=== PATIENT | female | born 1970 | race Caucasian/White ===

== ENCOUNTER 2017-03-03 11:37 | Emergency (ER) | payer MEDICAID ==
[2017-03-03] MEDS ORDERED: OXYCODONE-ACETAMINOPHEN 5-325 MG TABLET PO ONE (12:25)
--- NOTE | 2017-03-03 12:33 | ER Document Report ---
ED Extremity Problem, Lower - General Chief Complaint: Knee Pain Stated Complaint: LEFT KNEE PAIN Time Seen by Provider: 03/03/17 12:18 Notes: 46 yo female c/o left knee pain x several weeks. pt had surgery on same knee several years ago and reports pain since surgery, but this pain is more intense. feels crunching in knee. hurts to walk. knee feels unstable. pain started after climbing stairs on sailboat. no specific trauma. pt was seen by PCM yesterday, xrays done at [facility]. pt hoping for an MRI here in the ED. TRAVEL OUTSIDE OF THE [place] IN LAST 30 DAYS: No - HPI Patient complains to provider of: Pain Location: Knee - left Occurred: Other - several weeks Recent injury: No Exacerbated by: Movement, Walking Relieved by: Nothing - Related Data Allergies/Adverse Reactions: NSAIDS (Non-Steroidal Anti-Inflamma [Nsaids] Allergy (Verified 03/03/17 11:42) codeine Adverse Reaction (Verified 03/03/17 11:42) Nausea morphine [Morphine] Adverse Reaction (Verified 03/03/17 11:42) Chest pain Past Medical History - General Information source: Patient - Social History Smoking Status: Current Every Day Smoker Chew tobacco use (# tins/day): No Frequency of alcohol use: None Drug Abuse: None Lives with: Family Family History: Reviewed & Not Pertinent - Past Medical History Cardiac Medical History: Reports: Hx Hypertension Neurological Medical History: Reports: Hx Migraine Renal/ Medical History: Denies: Hx Peritoneal Dialysis GI Medical History: Reports: Hx Gastroesophageal Reflux Disease, Hx Hepatitis - Hepatitis C on no medications Psychiatric Medical History: Denies: Hx Depression Infectious Medical History: Reports: Hx Hepatitis - Hepatitis C on no medications Surgical Hx: Negative Past Surgical History: Reports: Hx Section - x3, Hx Cholecystectomy - Laparoscopic, Hx Orthopedic Surgery - L knee, TKR - Immunizations Hx Diphtheria, Pertussis, Tetanus Vaccination: Yes Review of Systems - Review of Systems Constitutional: No symptoms reported EENT: No symptoms reported Cardiovascular: No symptoms reported Respiratory: No symptoms reported Gastrointestinal: No symptoms reported Genitourinary: No symptoms reported Female Genitourinary: No symptoms reported Musculoskeletal: See HPI Skin: No symptoms reported Hematologic/Lymphatic: No symptoms reported Neurological/Psychological: No symptoms reported Physical Exam - Vital signs Vitals: Temp Pulse Resp BP Pulse Ox 98.0 F 81 20 148/85 H 98 03/03/17 11:42 03/03/17 11:42 03/03/17 11:42 03/03/17 11:42 03/03/17 11:42 Interpretation: Normal - General General appearance: Appears well, Alert - HEENT Head: Normocephalic, Atraumatic Eyes: Normal Pupils: PERRL - Respiratory Respiratory status: No respiratory distress Chest status: Nontender Breath sounds: Normal Chest palpation: Normal - Cardiovascular Rhythm: Regular Heart sounds: Normal auscultation Murmur: No - Abdominal Inspection: Normal Distension: No distension Bowel sounds: Normal Tenderness: Nontender Organomegaly: No organomegaly - Back Back: Normal, Nontender - Extremities General upper extremity: Normal inspection, Nontender, Normal color, Normal ROM , Normal temperature Knee: Tender - left infrapatellar pain, medial compartment pain. +soft tissue swelling to lateral distal quadricep. no effusion. neg drawer Calf: Normal - Neurological Neuro grossly intact: Yes Cognition: Normal Orientation: AAOx4 Noemi Coma Scale Eye Opening: Spontaneous [place] Coma Scale Verbal: Oriented [place]emi Coma Scale Motor: Obeys Commands [place] Coma Scale Total: 15 Speech: Normal Motor strength normal: LUE, RUE, LLE, RLE Sensory: Normal - Psychological Associated symptoms: Normal affect, Normal mood - Skin Skin Temperature: Warm Skin Moisture: Dry Skin Color: Normal Course - Re-evaluation Re-evalutation: 03/03/17 12:36 xray report from [facility] reviewed. xray showing s/p unicompartment arathroplasty within the medial compartment of left knee. medial tibial plateau compaonent appears well seated. alignment is appropriate. there are spurs along the medial joint line as well a moderately severe osteoarthritis involving the lateral compartment and the patellofemoral compartment and a joint effusion is present. no emergent imaging indicated today. will immobilize knee, provide crutches to help with ambulation and pain control. pt stable for discharge and follow up with PCM or orthopedics for further evaluation and treatment. pt agreeble with plan - Vital Signs Vital signs: Temp Pulse Resp BP Pulse Ox 98.0 F 81 20 148/85 H 98 03/03/17 11:42 03/03/17 11:42 03/03/17 11:42 03/03/17 11:42 03/03/17 11:42 Discharge - Discharge Clinical Impression: Left knee pain Qualifiers: Chronicity: acute Qualified Code(s): M25.562 - Pain in left knee Condition: Stable Disposition: HOME, SELF-CARE Instructions: Use of Crutches (OM), Suspected Internal Knee Injury (OM), Oral Narcotic Medication (OM), Ice & Elevation (OM) Additional Instructions: wear sharon and splint for comfort and protection pain med as needed oral steroid as prescribed follow up with orthopedist for further evaluation and treatment Prescriptions: Diclofenac Sodium [Voltaren] 4 gm TP QID PRN #100 g PRN Reason: Oxycodone HCl/Acetaminophen [Percocet 5-325 mg Tablet] 1 - 2 tab PO ASDIR PRN # 25 tablet PRN Reason: Prednisone [Deltasone 20 mg Tablet] 2 tab PO DAILY #16 tablet
[2017-03-03 13:19] VITALS: BP 137/97
== END 2017-03-03 13:19 | disposition home or self-care (01) ==
LOC: ER 11:37
DX: M17.12 Unilateral primary osteoarthritis, left knee (principal); M25.562 Pain in left knee; M79.89 Other specified soft tissue disorders; F17.200 Nicotine dependence, unspecified, uncomplicated; I10 Essential (primary) hypertension; Z96.652 Presence of left artificial knee joint; Z88.8 Allergy status to other drugs, medicaments and biological substances
CPT/HCPCS: 99283; L1830

== ENCOUNTER 2017-10-01 03:21 | Emergency (ER) | payer MEDICAID ==
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
[2017-10-01] MEDS ORDERED: OXYCODONE-ACETAMINOPHEN 5-325 MG TABLET PO ONE (05:08)
[2017-10-01] MEDS ORDERED: ONDANSETRON 4 MG TAB.RAPDIS PO ONE (05:08)
[2017-10-01 06:08] VITALS: BP 127/76
== END 2017-10-01 06:07 | disposition home or self-care (01) ==
LOC: ER 03:21
DX: S00.03XA Contusion of scalp, initial encounter (principal); S09.90XA Unspecified injury of head, initial encounter; M54.2 Cervicalgia; R51 Headache; R07.9 Chest pain, unspecified; I10 Essential (primary) hypertension; B19.20 Unspecified viral hepatitis C without hepatic coma; Z87.891 Personal history of nicotine dependence; Y09 Assault by unspecified means
CPT/HCPCS: 99284; 70450; 72125; S0119

== ENCOUNTER 2018-02-22 10:55 | Emergency (ER) | payer MEDICAID ==
[2018-02-22] MEDS ORDERED: FENTANYL CITRATE INJ/PF 100 MCG/2 ML AMPUL IM ONE (11:55)
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
[2018-02-22] MEDS ORDERED: HYDROCODONE/ACETAMINOPHEN 5-325 MG (6 TAB/ER DISP) PO PRN (15:15)
[2018-02-22 15:22] VITALS: BP 144/93
== END 2018-02-22 15:25 | disposition home or self-care (01) ==
LOC: ER 10:55
DX: S02.612A Fracture of condylar process of left mandible, initial encounter for closed fracture (principal); Y04.2XXA Assault by strike against or bumped into by another person, initial encounter; F17.200 Nicotine dependence, unspecified, uncomplicated; I10 Essential (primary) hypertension; Z90.49 Acquired absence of other specified parts of digestive tract; Z88.6 Allergy status to analgesic agent; Z96.652 Presence of left artificial knee joint
CPT/HCPCS: 99284; 96372; 70486; J3010

== ENCOUNTER 2018-05-24 13:06 | Emergency (ER) | payer SELFPAY ==
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
--- NOTE | 2018-05-24 13:58 | RADIOLOGY REPORT (SQ) ---
EXAM DESCRIPTION: CHEST SINGLE VIEW COMPLETED DATE/TIME: 05/24/2018 1:44 pm REASON FOR STUDY: hypoxia COMPARISON: 07/09/2016 EXAM PARAMETERS: NUMBER OF VIEWS: One view. TECHNIQUE: Single frontal radiographic view of the chest acquired. RADIATION DOSE: NA LIMITATIONS: None. FINDINGS: LUNGS AND PLEURA: No opacities, masses or pneumothorax. No pleural effusion. MEDIASTINUM AND HILAR STRUCTURES: No masses. Contour normal. HEART AND VASCULAR STRUCTURES: Heart normal in size. Normal vasculature. BONES: No acute findings. HARDWARE: None in the chest. OTHER: No other significant finding. IMPRESSION: NO ACUTE RADIOGRAPHIC FINDING IN THE CHEST. TECHNICAL DOCUMENTATION: JOB ID: [id number] [employer]- All Rights Reserved Reading location - IP/workstation name: [email or web address]
[2018-05-24] MEDS ORDERED: IPRATROPIUM/ALBUTEROL 0.5-2.5 MG/3 ML AMPUL NEB ONE (14:00)
[2018-05-24 14:04] LABS: ABSOLUTE BASOPHILS # (AUTO) 0.1 10^3/uL (0.0-0.2); ABSOLUTE EOSINOPHILS # (AUTO) 0.1 10^3/uL (0.0-0.6); ABSOLUTE MONOCYTES (AUTO) 0.4 10^3/uL (0.1-1.4); BASOPHILS % (AUTO) 1.1 % (0-2); EOSINOPHILS % (AUTO) 2.1 % (0-6); HEMATOCRIT 32.4 % (36.0-47.0); LYMPHOCYTES % (AUTO) 18.3 % (13-45); MEAN CORPUSCULAR HEMOGLOBIN 29.3 pg (27.0-33.4); MEAN CORPUSCULAR VOLUME 86 fl (80-97); RED BLOOD COUNT 3.75 10^6/uL (3.72-5.28); RED CELL DISTRIBUTION WIDTH 18.4 % (11.5-14.0); SEGMENTED NEUTROPHILS % (AUTO) 71.5 % (42-78); TOTAL CELLS COUNTED % (AUTO) 100 %; WHITE BLOOD COUNT 5.7 10^3/uL (4.0-10.5)
[2018-05-24 14:28] LABS: ALANINE AMINOTRANSFERASE 66 U/L (9-52); ALBUMIN 3.3 g/dL (3.5-5.0); ALCOHOL 108 mg/dL (NONE DETECTED); ALKALINE PHOSPHATASE 131 U/L (38-126); ANION GAP 9 (5-19); ASPARTATE AMINO TRANSFERASE 150 U/L (14-36); BILIRUBIN,DIRECT 0.7 mg/dL (0.0-0.4); BILIRUBIN,TOTAL 1.5 mg/dL (0.2-1.3); BLOOD UREA NITROGEN 4 mg/dL (7-20); CALCIUM 8.6 mg/dL (8.4-10.2); CARBON DIOXIDE 24 mmol/L (22-30); CHLORIDE 108 mmol/L (98-107); GLUCOSE 137 mg/dL (75-110); POTASSIUM 3.6 mmol/L (3.6-5.0); SODIUM 141.1 mmol/L (137-145); TOTAL PROTEIN 7.6 g/dL (6.3-8.2)
[2018-05-24 14:39] LABS: PLATELET COUNT 96 10^3/uL (150-450)
[2018-05-24 14:43] LABS: URINE AMPHETAMINES SCREEN NEGATIVE; URINE BARBITURATES SCREEN NEGATIVE; URINE BENZODIAZEPINES SCREEN NEGATIVE; URINE COCAINE SCREEN UNCONFIRMED POSITIVE; URINE METHADONE SCREEN NEGATIVE; URINE PHENCYCLIDINE SCREEN NEGATIVE
[2018-05-24 14:48] LABS: URINE MARIJUANA (THC) SCREEN NEGATIVE
--- NOTE | 2018-05-24 18:31 | EKG REPORT ---
SEVERITY:- BORDERLINE ECG - SINUS RHYTHM BORDERLINE T ABNORMALITIES, ANT-LAT LEADS : Confirmed by: Dillon Sandoval MD 24-May-2018 18:30:56
[2018-05-24 21:27] VITALS: BP 148/98
== END 2018-05-24 21:00 | disposition home or self-care (01) ==
LOC: ER 13:06
DX: T50.901A Poisoning by unspecified drugs, medicaments and biological substances, accidental (unintentional), initial encounter (principal); Y92.818 Other transport vehicle as the place of occurrence of the external cause; R58 Hemorrhage, not elsewhere classified; F17.210 Nicotine dependence, cigarettes, uncomplicated; R06.2 Wheezing; R74.0 Nonspecific elevation of levels of transaminase and lactic acid dehydrogenase [LDH]; I10 Essential (primary) hypertension; I85.00 Esophageal varices without bleeding; Z88.8 Allergy status to other drugs, medicaments and biological substances
CPT/HCPCS: 93005; 94640; 99285; 36415; 80307 ×2; 85025; 80053; 84484; 71045; 93010; J7620

== ENCOUNTER 2018-07-20 19:13 | Emergency (ER) | payer MEDICAID ==
[2018-07-20] MEDS ORDERED: ASPIRIN 81 MG TABLET, CHEWABLE PO ONE (20:06)
--- NOTE | 2018-07-20 20:39 | RADIOLOGY REPORT (SQ) ---
EXAM DESCRIPTION: CHEST SINGLE VIEW COMPLETED DATE/TIME: 07/20/2018 8:30 pm REASON FOR STUDY: cp COMPARISON: 07/09/2016. EXAM PARAMETERS: NUMBER OF VIEWS: One view. TECHNIQUE: Single frontal radiographic view of the chest acquired. RADIATION DOSE: NA LIMITATIONS: None. FINDINGS: LUNGS AND PLEURA: No opacities, masses or pneumothorax. No pleural effusion. MEDIASTINUM AND HILAR STRUCTURES: No masses. Contour normal. HEART AND VASCULAR STRUCTURES: Heart normal in size. Normal vasculature. BONES: No acute findings. Old fracture of the right clavicle. HARDWARE: None in the chest. OTHER: No other significant finding. IMPRESSION: NO ACUTE RADIOGRAPHIC FINDING IN THE CHEST. TECHNICAL DOCUMENTATION: JOB ID: [id number] [employer]- All Rights Reserved Reading location - IP/workstation name: [email or web address]
[2018-07-20] MEDS ORDERED: LORAZEPAM INJ 2 MG/1 ML VIAL IV ONE (20:46)
[2018-07-20] MEDS ORDERED: IPRATROPIUM/ALBUTEROL 0.5-2.5 MG/3 ML AMPUL NEB ONE (20:47)
[2018-07-20] MEDS ORDERED: ONDANSETRON HCL INJ/PF 4 MG/2 ML SDV IV ONE (20:49)
--- NOTE | 2018-07-20 20:49 | ER Document Report ---
ED Medical Screen (RME) - General Chief Complaint: Chest Pain Stated Complaint: CHEST PAIN Time Seen by Provider: 07/20/18 20:41 Notes: Patient is a 48-year-old female with history of COPD and cirrhosis that presents to the emergency department for chief complaint of chest pain, shortness of breath, and alcohol withdrawal symptoms. Patient reports that her last drink was approximately 2 days ago, she typically drinks about 1/5 of alcohol daily, she has cirrhosis with esophageal varices, she states she has had on and off black stool over the past 2 weeks, she has had some nausea and vomiting over the past several days as well, denies blood in the vomit.. ROS: Other than noted above, the 12 point review of systems was reviewed with the patient and were negative, all pertinent findings are included in the HPI. PHYSICAL EXAMINATION: Vital signs reviewed. GENERAL: Chronically ill-appearing female, but in no acute distress HEAD: Atraumatic, normocephalic. EYES: Pupils equal round extraocular movements intact, conjunctiva are normal. ENT: Nares patent NECK: Normal range of motion CV: Heart regular rate and rhythm, 2+ systolic murmur LUNGS: No respiratory distress, diminished lung sounds Musculoskeletal: Normal range of motion NEUROLOGICAL: Normal speech PSYCH: Normal mood, normal affect. MDM: Patient seen and examined for rapid initial assessment. Vital signs reviewed. A comprehensive ED assessment and evaluation of the patient, analysis of test results and completion of the medical decision making process will be conducted by additional ED providers. *Note is created using voice recognition software and may contain spelling, syntax or grammatical errors. TRAVEL OUTSIDE OF THE [place] IN LAST 30 DAYS: No - Related Data Allergies/Adverse Reactions: NSAIDS (Non-Steroidal Anti-Inflamma [Nsaids] Allergy (Verified 02/22/18 11:00) codeine Adverse Reaction (Verified 02/22/18 11:00) Nausea morphine [Morphine] Adverse Reaction (Verified 02/22/18 11:00) Chest pain Past Medical History - Past Medical History Cardiac Medical History: Reports: Hx Hypertension Neurological Medical History: Reports: Hx Migraine Renal/ Medical History: Denies: Hx Peritoneal Dialysis GI Medical History: Reports: Hx Gastroesophageal Reflux Disease, Hx Hepatitis - Hepatitis C on no medications Psychiatric Medical History: Denies: Hx Depression Infectious Medical History: Reports: Hx Hepatitis - Hepatitis C on no medications Past Surgical History: Reports: Hx Section - x3, Hx Cholecystectomy - Laparoscopic, Hx Orthopedic Surgery - L knee, TKR - Immunizations Hx Diphtheria, Pertussis, Tetanus Vaccination: Yes Physical Exam - Vital signs Vitals: Temp Pulse Resp BP Pulse Ox 98.0 F 102 H 20 168/98 H 100 07/20/18 19:42 07/20/18 19:42 07/20/18 19:42 07/20/18 19:42 07/20/18 19:42 Course - Vital Signs Vital signs: Temp Pulse Resp BP Pulse Ox 98.0 F 102 H 20 168/98 H 100 07/20/18 19:42 07/20/18 19:42 07/20/18 19:42 07/20/18 19:42 07/20/18 19:42 Doctor's Discharge - Discharge Referrals: MARIANGEL NEWTON MD [Primary Care Provider] - Follow up as needed
--- NOTE | 2018-07-20 21:06 | EKG REPORT ---
SEVERITY:- BORDERLINE ECG - SINUS TACHYCARDIA BORDERLINE PROLONGED QT INTERVAL : Confirmed by: Cande Evangelista MD 20-Jul-2018 21:04:56
[2018-07-20 22:36] LABS: HEMATOCRIT 32.8 % (36.0-47.0); HEMOGLOBIN 10.9 g/dL (12.0-15.5); MEAN CORPUSCULAR HEMOGLOBIN 30.5 pg (27.0-33.4); MEAN CORPUSCULAR HGB CONC 33.3 g/dL (32.0-36.0); MEAN CORPUSCULAR VOLUME 92 fl (80-97); PLATELET COUNT 118 10^3/uL (150-450); RED BLOOD COUNT 3.58 10^6/uL (3.72-5.28); RED CELL DISTRIBUTION WIDTH 18.2 % (11.5-14.0); WHITE BLOOD COUNT 4.7 10^3/uL (4.0-10.5)
[2018-07-20 22:45] LABS: ALANINE AMINOTRANSFERASE 63 U/L (9-52); ALBUMIN 3.5 g/dL (3.5-5.0); ALKALINE PHOSPHATASE 139 U/L (38-126); ANION GAP 9 (5-19); ASPARTATE AMINO TRANSFERASE 158 U/L (14-36); BILIRUBIN,DIRECT 0.8 mg/dL (0.0-0.4); BILIRUBIN,TOTAL 2.2 mg/dL (0.2-1.3); BLOOD UREA NITROGEN 11 mg/dL (7-20); CALCIUM 8.9 mg/dL (8.4-10.2); CARBON DIOXIDE 25 mmol/L (22-30); CHLORIDE 105 mmol/L (98-107); GLUCOSE 100 mg/dL (75-110); POTASSIUM 3.5 mmol/L (3.6-5.0); SODIUM 139.4 mmol/L (137-145); TOTAL PROTEIN 8.4 g/dL (6.3-8.2)
[2018-07-20 22:54] LABS: ABSOLUTE LYMPHOCYTES# (MANUAL) 1.3 10^3/uL (0.5-4.7); ABSOLUTE MONOCYTES # (MANUAL) 0.5 10^3/uL (0.1-1.4); ABSOLUTE NEUTROPHILS# (MANUAL) 2.8 10^3/uL (1.7-8.2); BASOPHILS % (MANUAL) 2 % (0-2); EOSINOPHILS % (MANUAL) 2 % (0-6); LYMPHOCYTES % (MANUAL) 27 % (13-45); MONOCYTES % (MANUAL) 10 % (3-13); SEGMENTED NEUTROPHILS % (MAN) 59 % (42-78); TOTAL CELLS COUNTED 100; TOXIC GRANULATION SLIGHT
[2018-07-20 22:55] LABS: ANISOCYTOSIS 2+; PLATELET COMMENT DECREASED; POIKILOCYTOSIS SLIGHT
[2018-07-21] MEDS ORDERED: LORAZEPAM INJ 2 MG/1 ML VIAL IV ONE (01:47)
--- NOTE | 2018-07-21 01:50 | ER Document Report ---
ED General - General Chief Complaint: Chest Pain Stated Complaint: CHEST PAIN Time Seen by Provider: 07/20/18 20:41 Notes: 48-year-old female with history of EtOH abuse, cirrhosis, esophageal varices, COPD presents to the emergency department for chest pain and numbness in her left arm and hand. She said this started yesterday evening and was sharp and stabbing in nature. She said it was made worse with deep inspiration and the pain subsided after a few minutes. She also had associated numbness of her left arm that has persisted and still is present. She also says she has shortness of breath, she vomits every time she eats or drinks, cold sweats, body aches, cramping abdominal pain, and she says "I am in alcohol withdrawal". She drinks 1/5 of vodka daily and her last drink was 2 days ago. She denies fevers, chest pain currently, dizziness, lightheadedness. TRAVEL OUTSIDE OF THE [place] IN LAST 30 DAYS: No - HPI Patient complains to provider of: chest pain, shortness of breath, numbness/ tingling left side - Related Data Allergies/Adverse Reactions: NSAIDS (Non-Steroidal Anti-Inflamma [Nsaids] Allergy (Verified 02/22/18 11:00) codeine Adverse Reaction (Verified 02/22/18 11:00) Nausea morphine [Morphine] Adverse Reaction (Verified 02/22/18 11:00) Chest pain Past Medical History - General Information source: Patient - Social History Smoking Status: Current Every Day Smoker Chew tobacco use (# tins/day): No Frequency of alcohol use: Heavy Drug Abuse: Cocaine Family History: Reviewed & Not Pertinent Patient has suicidal ideation: No Patient has homicidal ideation: No - Past Medical History Cardiac Medical History: Reports: Hx Hypertension Neurological Medical History: Reports: Hx Migraine Renal/ Medical History: Denies: Hx Peritoneal Dialysis GI Medical History: Reports: Hx Gastroesophageal Reflux Disease, Hx Hepatitis - Hepatitis C on no medications Psychiatric Medical History: Denies: Hx Depression Infectious Medical History: Reports: Hx Hepatitis - Hepatitis C on no medications Past Surgical History: Reports: Hx Section - x3, Hx Cholecystectomy - Laparoscopic, Hx Orthopedic Surgery - L knee, TKR - Immunizations Hx Diphtheria, Pertussis, Tetanus Vaccination: Yes Review of Systems - Review of Systems Constitutional: See HPI EENT: See HPI Cardiovascular: See HPI Respiratory: See HPI Gastrointestinal: See HPI Genitourinary: See HPI Female Genitourinary: No symptoms reported Musculoskeletal: See HPI Skin: No symptoms reported Hematologic/Lymphatic: No symptoms reported Neurological/Psychological: No symptoms reported Physical Exam - Vital signs Vitals: Temp Pulse Resp BP Pulse Ox 98.0 F 102 H 20 168/98 H 100 07/20/18 19:42 07/20/18 19:42 07/20/18 19:42 07/20/18 19:42 07/20/18 19:42 - Notes Notes: Reviewed vital signs and nursing note as charted by RN. CONSTITUTIONAL: Well-appearing, well-nourished, acting appropriately for age HEAD: Normocephalic, atraumatic, no swelling EYES: PERRL, Conjunctivae clear, no drainage, EOMI, no scleral icterus ENT: External ears without lesions, External auditory canal is patent, TMs without erythema, landmarks clear and well visualized, no rhinorrhea, Pharynx without erythema or lesions, no tonsillar hypertrophy, airway patent, mucous membranes pink and moist NECK: Supple, no cervical lymphadenopathy, no masses CARD: Regular rate and rhythm, no murmurs, no rubs, no gallops, capillary refill < 2 seconds, symmetric pulses RESP: The lungs are clear to auscultation bilaterally, no wheezing, no rales, no rhonchi. Respiratory rate and effort are normal, normal chest excursion. No respiratory distress, no retractions, no stridor, no nasal flaring, no accessory muscle use. ABD/GI: Normal bowel sounds, non-distended, soft, non-tender, no rebound, no guarding, hepatomegaly EXT: Normal ROM in all joints, non-tender to palpation, no effusions, no edema SKIN: Normal color for age and race, warm, dry, good turgor, no acute lesions noted NEURO: No facial asymmetry, moves all extremities equally, motor and sensory function intact, no asterixis Course - Re-evaluation Re-evalutation: 07/21/18 01:57 48-year-old female sleeping in the bed when I walked in the room in no acute distress presents for chest pain numbness in left arm and hand. She endorses that she is an alcoholic and her last drink was 2 days ago. She drinks 1/5 a day and says she is in withdrawal. She was given lorazepam 1 mg IV in triage at approximately 8:45 PM and I ordered Lorazepam 1 mg IV once more to be given. She did not have any evidence of asterixis but was tachycardic in the low 100s. Cardiac workup was initiated, initial troponin negative. 07/21/18 03:47 Second troponin negative. Patient was sleeping comfortably in the room when I went to reassess. No evidence of distress, patient was in normal sinus rhythm not tachycardic, no diaphoresis, no evidence of acute alcohol intoxication at this time. Patient with a negative cardiac workup at this time stable for discharge. I gave her instructions for close follow-up in case she has acute symptoms of alcohol withdrawal. 07/21/18 04:11 - Vital Signs Vital signs: Temp Pulse Resp BP Pulse Ox 98.4 F 102 H 16 168/98 H 99 07/21/18 01:07 07/21/18 01:07 07/21/18 01:07 07/20/18 19:42 07/21/18 01:07 - Laboratory Result Diagrams: 07/20/18 22:00 07/20/18 22:00 Laboratory results interpreted by me: 07/20/18 07/20/18 22:00 22:00 RBC 3.58 L Hgb 10.9 L Hct 32.8 L RDW 18.2 H Plt Count 118 L Potassium 3.5 L Total Bilirubin 2.2 H Direct Bilirubin 0.8 H AST 158 H ALT 63 H Alkaline Phosphatase 139 H Total Protein 8.4 H Discharge - Discharge Clinical Impression: Chest wall pain Hepatitis C Qualifiers: Viral hepatitis chronicity: chronic Hepatic coma status: without hepatic coma Qualified Code(s): B18.2 - Chronic viral hepatitis C Condition: Good Disposition: HOME, SELF-CARE Instructions: Chest Wall Pain ([facility]) Additional Instructions: You were seen in the emergency department this evening for chest wall pain and numbness in her left arm. Your cardiac workup was negative which is very reassuring. Because you have not had a drink in 2 days it is very important that you watch closely for signs of acute alcohol withdrawal. You initially had a heart rate that was slightly elevated and we gave you medication for that. At discharge you are very comfortable you have no evidence of acute alcohol withdrawal. Again if you have symptoms like cold sweats, racing heart rate, seizures, or you pass out call 911 or return to the emergency department. If you have severe chest pain, lightheadedness with it, nausea, vomiting please return to the emergency department. Forms: Smoking Cessation Education Referrals: MARIANGEL NEWTON MD [Primary Care Provider] - Follow up as needed [facility] [Provider Group] - Follow up as needed
[2018-07-21 06:52] VITALS: BP 124/76
== END 2018-07-21 06:50 | disposition home or self-care (01) ==
LOC: ER 19:13
DX: R07.89 Other chest pain (principal); B18.2 Chronic viral hepatitis C; F10.10 Alcohol abuse, uncomplicated; J44.9 Chronic obstructive pulmonary disease, unspecified; R20.0 Anesthesia of skin; R06.02 Shortness of breath; F17.200 Nicotine dependence, unspecified, uncomplicated; I10 Essential (primary) hypertension
CPT/HCPCS: 93005; 96376; 94640; 99285; 96374; 96375; 36415; 85025; 80053; 84484; 71045; 93010; J2060 ×2; J2405; J7620

== ENCOUNTER 2018-08-22 04:47 | Emergency (ER) | payer SELFPAY ==
[2018-08-22] MEDS ORDERED: ACETAMINOPHEN 325 MG TABLET PO ONE (05:08)
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
[2018-08-22] MEDS ORDERED: LIDOCAINE 5% (700 MG) TRANSDERMAL ADH..PATCH TP ONE (06:44)
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
[2018-08-22 07:22] VITALS: BP 111/61
== END 2018-08-22 07:23 | disposition home or self-care (01) ==
LOC: EEVIPCON 04:47 → ER 04:47
DX: R07.89 Other chest pain (principal); R07.81 Pleurodynia; R51 Headache; M54.2 Cervicalgia; M54.5 Low back pain; Y09 Assault by unspecified means; Y93.01 Activity, walking, marching and hiking; Y92.410 Unspecified street and highway as the place of occurrence of the external cause; R55 Syncope and collapse; R41.3 Other amnesia; F17.200 Nicotine dependence, unspecified, uncomplicated; I10 Essential (primary) hypertension; Z79.899 Other long term (current) drug therapy; Z88.8 Allergy status to other drugs, medicaments and biological substances
CPT/HCPCS: 70450; 72125; 72131; 99284

== ENCOUNTER 2018-11-12 10:33 | Emergency (ER) | payer SELFPAY ==
[2018-11-12] MEDS ORDERED: LIDOCAINE 5% (700 MG) TRANSDERMAL ADH..PATCH TP ONE (11:06)
[2018-11-12] MEDS ORDERED: CYCLOBENZAPRINE HCL 10 MG TABLET PO ONE (11:06)
--- NOTE | 2018-11-12 11:09 | ER Document Report ---
HPI - HPI Patient complains to provider of: Lower back pain Time Seen by Provider: 11/12/18 10:52 Pain Level: 4 Context: Patient is a 48-year-old female presents to the emergency department for lower back pain. Patient openly admits to getting heavily intoxicated with alcohol last evening. States she is unsure if she fell, or injured herself. States she woke up this morning with pain in her lower back. Patient is denying any urinary retention, loss of bowel or bladder. Patient is stating that she has a numbness or tingling feeling in bilateral all 5 fingers distally. Patient is denying any pain in her neck, upper back. Patient states she has an extensive history of esophageal varices with liver disease, hypertension Medications: Clonidine Allergies: Morphine, NSAIDs - REPRODUCTIVE Reproductive: DENIES: : Past Medical History - General Information source: Patient - Social History Smoking Status: Former Smoker Chew tobacco use (# tins/day): No Frequency of alcohol use: Occasional Drug Abuse: Cocaine Family History: Reviewed & Not Pertinent Patient has suicidal ideation: No Patient has homicidal ideation: No - Past Medical History Cardiac Medical History: Reports: Hx Hypertension Neurological Medical History: Reports: Hx Migraine Renal/ Medical History: Denies: Hx Peritoneal Dialysis GI Medical History: Reports: Hx Gastroesophageal Reflux Disease, Hx Hepatitis - Hepatitis C on no medications Psychiatric Medical History: Denies: Hx Depression Infectious Medical History: Reports: Hx Hepatitis - Hepatitis C on no medications Past Surgical History: Reports: Hx Section - x3, Hx Cholecystectomy - Laparoscopic, Hx Orthopedic Surgery - L knee, TKR - Immunizations Hx Diphtheria, Pertussis, Tetanus Vaccination: Yes Vertical Provider Document - CONSTITUTIONAL Agree With Documented VS: Yes Notes: GENERAL: Alert, interacts well. No acute distress, talking on her cell phone. HEAD: Normocephalic, atraumatic. EYES: Pupils equal, round, and reactive to light. Extraocular movements intact. ENT: Oral mucosa moist, tongue midline. NECK: Full range of motion. Supple. Trachea midline. LUNGS: Clear to auscultation bilaterally, no wheezes, rales, or rhonchi. No respiratory distress. HEART: Regular rate and rhythm. No murmur ABDOMEN: Soft, non-tender. Non-distended. Bowel sounds present in all 4 quadrants. EXTREMITIES: Moves all 4 extremities spontaneously. No edema, normal radial and dorsalis pedis pulses bilaterally. No cyanosis. 5 out of 5 strength all 4 extremities BACK: no cervical, thoracic midline tenderness. No saddle anesthesia, normal distal neurovascular exam. Lumbar spinal tenderness midline also right paraspinal tenderness noted. No obvious signs of trauma noted NEUROLOGICAL: Alert and oriented x3. Normal speech. cranial nerves II through XII grossly intact PSYCH: Normal affect, normal mood. SKIN: Warm, dry, normal turgor. No rashes or lesions noted. Capillary refill less than 2 seconds distally all 10 fingers. - INFECTION CONTROL TRAVEL OUTSIDE OF THE [place] IN LAST 30 DAYS: No Course - Re-evaluation Re-evalutation: Patient's lumbar spine x-ray reveals no signs of fractures. Patient has been treated with Flexeril and a Lidoderm patch in the emergency room. Due to her extensive history of esophageal varices and liver dysfunction NSAIDs were unable to be given. Discussed close follow-up with primary care provider and return precautions. - Vital Signs Vital signs: Temp Pulse Resp BP Pulse Ox 97.8 F 104 H 16 123/83 96 11/12/18 10:43 11/12/18 10:43 11/12/18 10:43 11/12/18 10:43 11/12/18 10:43 Discharge - Discharge Clinical Impression: Low back pain Qualifiers: Chronicity: acute Back pain laterality: right Sciatica presence: without sciatica Qualified Code(s): M54.5 - Low back pain Condition: Stable Disposition: HOME, SELF-CARE Instructions: Low Back Pain ([facility]), Muscle Strain ([facility]), Warm Packs ([facility]) Additional Instructions: As we discussed you have been seen and treated in the emergency department for your low back pain. Your x-rays revealed no signs of abnormalities. Please take muscle relaxers as prescribed and to exercises as outlined in this paperwork. Please also buy [id number] Lidoderm patches for generalized lower back pain relief. Please return to the emergency room should you have any other concerning symptoms. Please make sure you follow-up with your primary care provider in the next 24-48 hours. Prescriptions: Cyclobenzaprine HCl [Flexeril 5 mg Tablet] 5 mg PO TID #10 tablet Forms: Return to Work Referrals: [facility] [Provider Group] - Follow up as needed
--- NOTE | 2018-11-12 11:41 | RADIOLOGY REPORT (SQ) ---
EXAM DESCRIPTION: L SPINE WHOLE COMPLETED DATE/TIME: 11/12/2018 11:23 am REASON FOR STUDY: pain ? injury COMPARISON: None. NUMBER OF VIEWS: Five views including obliques. TECHNIQUE: AP, lateral, oblique, and sacral radiographic images acquired of the lumbar spine. LIMITATIONS: None. FINDINGS: MINERALIZATION: Normal. SEGMENTATION: Normal. No transitional anatomy. ALIGNMENT: Normal. VERTEBRAE: Maintained height. No fracture or worrisome bone lesion. DISCS: Multilevel disc space narrowing with osteophytes. POSTERIOR ELEMENTS: Pedicles and facets are intact. No pars defect or posterior arch defects. Facet arthropathy is present. HARDWARE: None in the spine. PARASPINAL SOFT TISSUES: Normal. PELVIS: Intact as visualized. No fractures or worrisome bone lesions. SI joints intact. OTHER: No other significant finding. IMPRESSION: SPONDYLOSIS WITHOUT BONE LESION OR FRACTURE. TECHNICAL DOCUMENTATION: JOB ID: [id number] [employer]- All Rights Reserved Reading location - IP/workstation name: [email or web address]
[2018-11-12 11:53] VITALS: BP 105/73
== END 2018-11-12 11:53 | disposition home or self-care (01) ==
LOC: ER 10:33
DX: M54.5 Low back pain (principal); R20.2 Paresthesia of skin; I10 Essential (primary) hypertension; Z88.6 Allergy status to analgesic agent; Z90.49 Acquired absence of other specified parts of digestive tract; Z86.19 Personal history of other infectious and parasitic diseases
CPT/HCPCS: 72110; 99283

== ENCOUNTER 2019-04-30 22:46 | Emergency (ER) | payer SELFPAY ==
[2019-04-30] MEDS ORDERED: NORMAL SALINE 1000 ML 1,000 ML IV ONE (23:10)
[2019-04-30] MEDS ORDERED: OCTREOTIDE ACETATE INJ/PF 100 MCG/1 ML SDV IV ONE (23:12)
[2019-04-30] MEDS ORDERED: ONDANSETRON HCL INJ/PF 4 MG/2 ML SDV IV ONE (23:12)
[2019-04-30] MEDS ORDERED: FAMOTIDINE INJ/PF 20 MG/2 ML SDV IV ONE (23:12)
[2019-04-30] MEDS ORDERED: PANTOPRAZOLE SODIUM 40 MG VIAL IV ONE (23:13)
--- NOTE | 2019-04-30 23:21 | ER Document Report ---
ED General - General Chief Complaint: Fever Stated Complaint: FEVER VOMITING Time Seen by Provider: 04/30/19 22:55 Information source: Patient Notes: Patient complains of nausea vomiting diarrhea and fever. She is known alcoholic. Her last drink was last night. She has a history of alcoholic cirrhosis. She has been coughing up streaks of blood today. She also complains of abdominal distention. Positive lower back pain. Denies dysuria. Positive chest pain. No shortness of breath. In route from EMS she received IV fluid and 4 mg of Zofran. She has a history of esophageal varices. No rashes. No other complaints. No trauma. Positive smoker. TRAVEL OUTSIDE OF THE [place] IN LAST 30 DAYS: No - Related Data Allergies/Adverse Reactions: NSAIDS (Non-Steroidal Anti-Inflamma [Nsaids] Allergy (Verified 11/12/18 10:37) codeine Adverse Reaction (Verified 11/12/18 10:37) Nausea morphine [Morphine] Adverse Reaction (Verified 11/12/18 10:37) Chest pain Past Medical History - Social History Smoking Status: Current Every Day Smoker Chew tobacco use (# tins/day): No Frequency of alcohol use: Heavy Drug Abuse: None Family History: Reviewed & Not Pertinent Patient has suicidal ideation: No Patient has homicidal ideation: No - Past Medical History Cardiac Medical History: Reports: Hx Hypertension Pulmonary Medical History: Reports: Hx Bronchitis, Hx COPD Neurological Medical History: Reports: Hx Migraine Renal/ Medical History: Denies: Hx Peritoneal Dialysis GI Medical History: Reports: Hx Gastroesophageal Reflux Disease - esoph varices, cirrhosis, Hx Hepatitis - Hepatitis C on no medications Psychiatric Medical History: Denies: Hx Depression Infectious Medical History: Reports: Hx Hepatitis - Hepatitis C on no medicat ions Past Surgical History: Reports: Hx Section - x3, Hx Cholecystectomy - Laparoscopic, Hx Orthopedic Surgery - L knee, TKR - Immunizations Hx Diphtheria, Pertussis, Tetanus Vaccination: Yes Review of Systems - Review of Systems Constitutional: Fever. denies: Chills -: Yes All other systems reviewed and negative Physical Exam - Vital signs Vitals: Resp Pulse Ox 24 H 83 L 04/30/19 22:51 04/30/19 22:51 Interpretation: Tachycardic - General General appearance: Alert Notes: APPEARS UNCOMFORTABLE. - HEENT Head: Normocephalic, Atraumatic Eyes: Normal Pupils: PERRL Mucous membranes: Dry Pharynx: Normal Neck: Normal, Supple - Respiratory Respiratory status: No respiratory distress Chest status: Nontender Breath sounds: Normal Chest palpation: Normal - Cardiovascular Rhythm: Regular, Tachycardia Heart sounds: Normal auscultation Murmur: No - Abdominal Inspection: Obese Distension: Distended Tenderness: Tender - ALL 4 QUADRANTS. ENLARGED LIVER. Organomegaly: Hepatomegaly - Back Back: Normal, Nontender - Extremities General upper extremity: Normal inspection, Nontender, Normal color, Normal ROM, Normal temperature General lower extremity: Edema, Normal ROM, Normal temperature. No: Niecy's sign - Neurological Neuro grossly intact: Yes Cognition: Normal Orientation: AAOx4 [place] Coma Scale Eye Opening: Spontaneous [place] Coma Scale Verbal: Oriented Noemi Coma Scale Motor: Obeys Commands [place] Coma Scale Total: 15 Speech: Normal Motor strength normal: LUE, RUE, LLE, RLE Sensory: Normal - Psychological Associated symptoms: Normal affect, Normal mood - Skin Skin Temperature: Warm Skin Moisture: Dry Skin Color: Normal Course - Re-evaluation Re-evalutation: 04/30/19 23:22 EKG PER ME SINUS TACHY 106; NS ST CHANGES; ARTIFACT; PAC. 05/01/19 00:42 ANTIBIOTIC ORDERED FOR UTI. BLOOD TRANSFUSION ORDERED FOR ANEMIA. 05/01/19 01:32 DISCUSSED CASE WITH HER DOCTOR HERE, DR. BOWERS. NO GI TOY DESIGNER HERE TONIGHT. WILL TRANSFER. 05/01/19 01:50 CONTACTED TRANSFER CENTER AT [facility]. WILL TALK TO DR. FRANKLIN AT ICU THERE. 05/01/19 02:42 DISCUSSED CASE IN DETAIL WITH DR. FRANKLIN, WHO HAS ACCEPTED THE PATIENT. HE RECOMMENDS [facility]. 05/01/19 02:43 05/01/19 02:[address] COTO. - Vital Signs Vital signs: Temp Pulse Resp BP Pulse Ox 18 116/77 95 05/01/19 02:01 05/01/19 02:00 05/01/19 02:01 - Laboratory Result Diagrams: 04/30/19 23:23 04/30/19 23:23 Laboratory results interpreted by me: 04/30/19 04/30/19 04/30/19 23:23 23:23 23:23 RBC 3.27 L Hgb 8.1 L Hct 24.8 L MCV 76 L MCH 24.8 L RDW 18.5 H Plt Count 68 L PT 18.4 H Sodium 131.0 L Potassium 3.1 L BUN 4 L Glucose 119 H Calcium 7.8 L Magnesium 1.5 L AST 209 H Total Protein 6.1 L Albumin 2.7 L Lipase 332.8 H Urine Blood Urine Nitrite Urine Urobilinogen Ur Leukocyte Esterase Crossmatch 04/30/19 05/01/19 23:39 00:00 RBC Hgb Hct MCV MCH RDW Plt Count PT Sodium Potassium BUN Glucose Calcium Magnesium AST Total Protein Albumin Lipase Urine Blood SMALL H Urine Nitrite POSITIVE H Urine Urobilinogen 4.0 H Ur Leukocyte Esterase MODERATE H Crossmatch See Detail - Diagnostic Test Radiology reviewed: Image reviewed, Reports reviewed Critical Care Note - Critical Care Note Total time excluding time spent on procedures (mins): 40 Discharge - Discharge Clinical Impression: Hemoptysis Chest pain Qualifiers: Chest pain type: unspecified Qualified Code(s): R07.9 - Chest pain, unspecified Abdominal pain Qualifiers: Abdominal location: generalized Qualified Code(s): R10.84 - Generalized abdominal pain Esophageal varices Qualifiers: Esophageal varices type: unspecified type Esophageal varices bleeding: with bleeding Qualified Code(s): I85.01 - Esophageal varices with bleeding Alcoholic cirrhosis Qualifiers: Ascites presence: with ascites Qualified Code(s): K70.31 - Alcoholic cirrhosis of liver with ascites Anemia Qualifiers: Anemia type: unspecified type Qualified Code(s): D64.9 - Anemia, unspecified UTI (urinary tract infection) Qualifiers: Urinary tract infection type: acute cystitis Hematuria presence: with hematuria Qualified Code(s): N30.01 - Acute cystitis with hematuria Condition: Serious Disposition: [facility]
[2019-04-30 23:48] LABS: ABSOLUTE LYMPHOCYTES (AUTO) 0.8 10^3/uL (0.5-4.7); ABSOLUTE MONOCYTES (AUTO) 0.6 10^3/uL (0.1-1.4); ABSOLUTE NEUT (AUTO) 3.7 10^3/uL (1.7-8.2); BASOPHILS % (AUTO) 0.8 % (0-2); EOSINOPHILS % (AUTO) 0.3 % (0-6); HEMATOCRIT 24.8 % (36.0-47.0); HEMOGLOBIN 8.1 g/dL (12.0-15.5); LYMPHOCYTES % (AUTO) 15.7 % (13-45); MEAN CORPUSCULAR HEMOGLOBIN 24.8 pg (27.0-33.4); MEAN CORPUSCULAR HGB CONC 32.7 g/dL (32.0-36.0); MEAN CORPUSCULAR VOLUME 76 fl (80-97); RED BLOOD COUNT 3.27 10^6/uL (3.72-5.28); RED CELL DISTRIBUTION WIDTH 18.5 % (11.5-14.0); SEGMENTED NEUTROPHILS % (AUTO) 72.2 % (42-78); TOTAL CELLS COUNTED % (AUTO) 100 %; WHITE BLOOD COUNT 5.2 10^3/uL (4.0-10.5)
[2019-05-01 00:05] LABS: PLATELET COUNT 68 10^3/uL (150-450)
[2019-05-01 00:12] LABS: ALBUMIN 2.7 g/dL (3.5-5.0); ALCOHOL 31 mg/dL (NONE DETECTED); ALKALINE PHOSPHATASE 72 U/L (38-126); ANION GAP 10 (5-19); ASPARTATE AMINO TRANSFERASE 209 U/L (14-36); BILIRUBIN,DIRECT 0.3 mg/dL (0.0-0.4); BILIRUBIN,TOTAL 0.8 mg/dL (0.2-1.3); BLOOD UREA NITROGEN 4 mg/dL (7-20); CALCIUM 7.8 mg/dL (8.4-10.2); CARBON DIOXIDE 22 mmol/L (22-30); CHLORIDE 99 mmol/L (98-107); GLUCOSE 119 mg/dL (75-110); POTASSIUM 3.1 mmol/L (3.6-5.0); TOTAL PROTEIN 6.1 g/dL (6.3-8.2)
[2019-05-01 00:19] LABS: INTERNATIONAL RATION (INR) 1.51; PROTHROMBIN TIME 18.4 SEC (11.4-15.4)
--- NOTE | 2019-05-01 00:23 | RADIOLOGY REPORT (SQ) ---
EXAM DESCRIPTION: XR CHEST 1 VIEW COMPLETED DATE/TME: 04/30/2019 23:09 CLINICAL HISTORY: 48 years, Female, CHEST PAIN COMPARISON: 07/20/2018 chest NUMBER OF VIEWS: 1 TECHNIQUE: Portable chest LIMITATIONS: None. FINDINGS: The heart size is normal. Lungs are clear. No pneumothorax IMPRESSION: No acute cardiopulmonary process copyright 2010 [employer]- All Rights Reserved
[2019-05-01 00:24] LABS: APPEARANCE,URINE CLOUDY; BILIRUBIN,URINE NEGATIVE (NEGATIVE); COLOR,URINE AMBER; GLUCOSE, URINE NEGATIVE (NEGATIVE); KETONES,URINE NEGATIVE (NEGATIVE); LEUKOCYTE ESTERASE,URINE MODERATE (NEGATIVE); NITRITE,URINE POSITIVE (NEGATIVE); PROTEIN,URINE NEGATIVE (NEGATIVE); URINE SPECIFIC GRAVITY 1.017
--- NOTE | 2019-05-01 00:34 | RADIOLOGY REPORT (SQ) ---
EXAM DESCRIPTION: CT ABDOMEN PELVIS WITHOUT IV CONTRAST COMPLETED DATE/TME: 04/30/2019 23:10 CLINICAL HISTORY: 48 years, Female, ABD PAIN COMPARISON: 07/13/2016 CT TECHNIQUE: 296 Images stored on PACS. All CT scanners at this facility use dose modulation, iterative reconstruction, and/or weight based dosing when appropriate to reduce radiation dose to as low as reasonably achievable (ALARA). [facility]: Dose Right [facility]: CareDose [facility]: Dose Right [facility]: Teradose 4D [facility]: Nu-Pulse LIMITATIONS: None. FINDINGS: The visualized lung bases are unremarkable. Small hiatal hernia. Nodularity of the liver consistent with cirrhosis. Splenomegaly at 15 cm. The adrenal glands, pancreas, and kidneys are unremarkable. Status post cholecystectomy. Moderate atheromatous change. No gross evidence for bowel obstruction. Small volume of ascites. Small amount of air in urinary bladder. Correlate with urinalysis. The appendix is not well seen. No pericecal inflammation. IMPRESSION: Cirrhotic change to the liver. Splenomegaly. Small volume of ascites. TECHNICAL DOCUMENTATION: Quality ID # [id number]: Final reports with documentation of one or more dose reduction techniques (e.g., Automated exposure control, adjustment of the mA and/or kV according to patient size, use of iterative reconstruction technique) copyright 2010 [employer]- All Rights Reserved
[2019-05-01] MEDS ORDERED: CEFTRIAXONE INJ 1000 MG VIAL IV ONE (00:42)
[2019-05-01] MEDS ORDERED: NORMAL SALINE 250 ML IV PRN ×2 (00:45)
--- NOTE | 2019-05-01 06:36 | EKG REPORT ---
SEVERITY:- BORDERLINE ECG - SINUS TACHYCARDIA ATRIAL PREMATURE COMPLEX BORDERLINE T ABNORMALITIES, LATERAL LEADS : Confirmed by: Dillon Sandoval MD 01-May-2019 06:35:43
[2019-05-01 08:15] VITALS: BP 133/85
--- NOTE | 2019-05-01 09:51 | ER Document Report ---
Doctor's Note Notes: 05/01/19 09:49 I have evaluated this pt. this am and she has no c/o at this time. She feels all of her needs are being met and her physical exam is normal. She is NPO as she is awaiting endoscopy via transfer to [facility].
[2019-05-01] MEDS ORDERED: HYDROMORPHONE HCL INJ/PF 2 MG/ML AMPULE IV ONE (10:29)
== END 2019-05-01 10:43 | disposition short-term general hospital (02) ==
LOC: ER 22:46
DX: I85.01 Esophageal varices with bleeding (principal); K70.31 Alcoholic cirrhosis of liver with ascites; N30.01 Acute cystitis with hematuria; D64.9 Anemia, unspecified; R04.2 Hemoptysis; R07.9 Chest pain, unspecified; R10.84 Generalized abdominal pain; R11.2 Nausea with vomiting, unspecified; R00.0 Tachycardia, unspecified; R19.7 Diarrhea, unspecified; R50.9 Fever, unspecified; M54.5 Low back pain; F17.200 Nicotine dependence, unspecified, uncomplicated; I10 Essential (primary) hypertension; J44.9 Chronic obstructive pulmonary disease, unspecified; Z88.8 Allergy status to other drugs, medicaments and biological substances
CPT/HCPCS: 93005; 99291; 96361; 96374; 96375; 86900; 86901; 36415; 36430; 86850; 80307; 83690; 83735; 85025; 85610; 80053; 81001; 84484; 86920; 71045; 74176; 93010; P9016; J1170; J2354; S0164; J0696; J2405; J7030; J7050; S0028

== ENCOUNTER 2019-05-15 15:29 | Emergency (ER) | payer SELFPAY ==
[2019-05-15 15:48] VITALS: BP 149/96
--- NOTE | 2019-05-15 16:32 | ER Document Report ---
ED Medical Screen (RME) - General Chief Complaint: Abdominal Pain Stated Complaint: ABDOMINAL PAIN Time Seen by Provider: 05/15/19 16:15 Mode of Arrival: Ambulatory Notes: 48-year-old female presented to ED for complaint of abdominal pain. She was sent over here by her primary care because she has gross ascites at this time. She was just seen and discharged Wednesday for ascites and blood transfusions. She has a history of hepatitis C alcoholic cirrhosis esophageal varices. She is a chronic alcoholic drinks daily smokes half pack a day uses cocaine last couple days ago. She states she is having shortness of breath and pain from her severe ascites. I have greeted and performed a rapid initial assessment of this patient. A comprehensive ED assessment and evaluation of the patient, analysis of test results and completion of medical decision making process will be conducted by an additional ED providers. TRAVEL OUTSIDE OF THE [place] IN LAST 30 DAYS: No - Related Data Allergies/Adverse Reactions: NSAIDS (Non-Steroidal Anti-Inflamma [Nsaids] Allergy (Verified 11/12/18 10:37) codeine Adverse Reaction (Verified 11/12/18 10:37) Nausea morphine [Morphine] Adverse Reaction (Verified 11/12/18 10:37) Chest pain Past Medical History - Past Medical History Cardiac Medical History: Reports: Hx Hypertension Pulmonary Medical History: Reports: Hx Bronchitis, Hx COPD Neurological Medical History: Reports: Hx Migraine Renal/ Medical History: Denies: Hx Peritoneal Dialysis GI Medical History: Reports: Hx Gastroesophageal Reflux Disease - esoph varices, cirrhosis, Hx Hepatitis - Hepatitis C on no medications Psychiatric Medical History: Denies: Hx Depression Infectious Medical History: Reports: Hx Hepatitis - Hepatitis C on no medications Past Surgical History: Reports: Hx Section - x3, Hx Cholecystectomy - Laparoscopic, Hx Orthopedic Surgery - L knee, TKR - Immunizations Hx Diphtheria, Pertussis, Tetanus Vaccination: Yes Physical Exam - Vital signs Vitals: Temp Pulse Resp BP Pulse Ox 98.7 F 109 H 18 149/96 H 96 05/15/19 15:46 05/15/19 15:46 05/15/19 15:46 05/15/19 15:46 05/15/19 15:46 Course - Vital Signs Vital signs: Temp Pulse Resp BP Pulse Ox 98.7 F 109 H 18 149/96 H 96 05/15/19 15:46 05/15/19 15:46 05/15/19 15:46 05/15/19 15:46 05/15/19 15:46
[2019-05-15 18:11] LABS: ABSOLUTE BASOPHILS # (AUTO) 0.1 10^3/uL (0.0-0.2); ABSOLUTE LYMPHOCYTES (AUTO) 1.4 10^3/uL (0.5-4.7); ABSOLUTE MONOCYTES (AUTO) 0.6 10^3/uL (0.1-1.4); ABSOLUTE NEUT (AUTO) 3.4 10^3/uL (1.7-8.2); BASOPHILS % (AUTO) 1.1 % (0-2); EOSINOPHILS % (AUTO) 0.7 % (0-6); HEMOGLOBIN 10.3 g/dL (12.0-15.5); MEAN CORPUSCULAR HEMOGLOBIN 24.9 pg (27.0-33.4); MEAN CORPUSCULAR HGB CONC 32.2 g/dL (32.0-36.0); MEAN CORPUSCULAR VOLUME 77 fl (80-97); MONOCYTES % (AUTO) 11.3 % (3-13); PLATELET COUNT 141 10^3/uL (150-450); RED BLOOD COUNT 4.14 10^6/uL (3.72-5.28); RED CELL DISTRIBUTION WIDTH 20.8 % (11.5-14.0); SEGMENTED NEUTROPHILS % (AUTO) 61.9 % (42-78); TOTAL CELLS COUNTED % (AUTO) 100 %; WHITE BLOOD COUNT 5.5 10^3/uL (4.0-10.5)
[2019-05-15 18:17] LABS: APPEARANCE,URINE SLIGHTLY-CLOUDY; BILIRUBIN,URINE NEGATIVE (NEGATIVE); COLOR,URINE AMBER; GLUCOSE, URINE NEGATIVE (NEGATIVE); KETONES,URINE NEGATIVE (NEGATIVE); LEUKOCYTE ESTERASE,URINE NEGATIVE (NEGATIVE); NITRITE,URINE NEGATIVE (NEGATIVE); PROTEIN,URINE NEGATIVE (NEGATIVE); URINE SPECIFIC GRAVITY 1.023
[2019-05-15 18:32] LABS: URINE BARBITURATES SCREEN NEGATIVE; URINE BENZODIAZEPINES SCREEN NEGATIVE; URINE COCAINE SCREEN UNCONFIRMED POSITIVE; URINE MARIJUANA (THC) SCREEN NEGATIVE; URINE METHADONE SCREEN NEGATIVE; URINE PHENCYCLIDINE SCREEN NEGATIVE
[2019-05-15 18:36] LABS: ALBUMIN 3.7 g/dL (3.5-5.0); ALKALINE PHOSPHATASE 84 U/L (38-126); ANION GAP 11 (5-19); ASPARTATE AMINO TRANSFERASE 65 U/L (14-36); BILIRUBIN,DIRECT 0.5 mg/dL (0.0-0.4); BILIRUBIN,TOTAL 2.2 mg/dL (0.2-1.3); BLOOD UREA NITROGEN 9 mg/dL (7-20); CALCIUM 9.3 mg/dL (8.4-10.2); CARBON DIOXIDE 26 mmol/L (22-30); CHLORIDE 100 mmol/L (98-107); GLUCOSE 81 mg/dL (75-110); POTASSIUM 3.7 mmol/L (3.6-5.0); TOTAL PROTEIN 8.5 g/dL (6.3-8.2)
--- NOTE | 2019-05-15 18:37 | RADIOLOGY REPORT (SQ) ---
EXAM DESCRIPTION: U/S ABDOMEN LIMITED W/O DOP COMPLETED DATE/TIME: 05/15/2019 6:26 pm REASON FOR STUDY: Ascites COMPARISON: 07/13/2016 TECHNIQUE: Dynamic and static grayscale images acquired of the abdomen and recorded on PACS. Patriciao lulú selected color Doppler and spectral images recorded. LIMITATIONS: None. FINDINGS: Limited sonographic imaging in the abdomen shows no significant ascites. IMPRESSION: No significant ascites is seen. TECHNICAL DOCUMENTATION: JOB ID: [id number] [employer]- All Rights Reserved Reading location - IP/workstation name: [email or web address]
== END 2019-05-15 21:07 | disposition left against medical advice (07) ==
LOC: ER 15:29
DX: Z53.21 Procedure and treatment not carried out due to patient leaving prior to being seen by health care provider (principal); R10.9 Unspecified abdominal pain; F10.20 Alcohol dependence, uncomplicated; F14.10 Cocaine abuse, uncomplicated; R18.8 Other ascites; R06.02 Shortness of breath; I10 Essential (primary) hypertension; F17.210 Nicotine dependence, cigarettes, uncomplicated
CPT/HCPCS: 36415; 76705; 80053; 80307; 81001; 83690; 85025; 99281

== ENCOUNTER 2019-05-16 11:25 | Emergency (ER) | payer SELFPAY ==
--- NOTE | 2019-05-16 12:15 | ER Document Report ---
ED Medical Screen (RME) - General Chief Complaint: GI Bleeding Stated Complaint: POSSIBLE GI BLEED Time Seen by Provider: 05/16/19 12:06 Notes: Patient is a 48-year-old female presents emergency department with a chief complaint of abdominal bloating and pain. She states that she also has a hard time swallowing. She was banded at [facility] and released last week for a GI bleed. Patient denies any vomiting at this time, but states that she is coughing up some tinged blood. Her last bowel movement was 3 days ago. Her abdomen is getting bigger. Denies any dysuria. Patient was seen in triage yesterday in the emergency department, but left due to the wait. Exam: Mildly tender generalized abdomen. I have greeted and performed a rapid initial assessment of this patient. A comprehensive ED assessment and evaluation of the patient, analysis of test results and completion of medical decision making process will be conducted by an additional ED providers. TRAVEL OUTSIDE OF THE [place] IN LAST 30 DAYS: No - Related Data Allergies/Adverse Reactions: NSAIDS (Non-Steroidal Anti-Inflamma [Nsaids] Allergy (Verified 05/16/19 12:02) codeine Adverse Reaction (Verified 05/16/19 12:02) Nausea morphine [Morphine] Adverse Reaction (Verified 05/16/19 12:02) Chest pain Past Medical History - Past Medical History Cardiac Medical History: Reports: Hx Hypertension Pulmonary Medical History: Reports: Hx Bronchitis, Hx COPD Neurological Medical History: Reports: Hx Migraine Renal/ Medical History: Denies: Hx Peritoneal Dialysis GI Medical History: Reports: Hx Gastroesophageal Reflux Disease - esoph varices, cirrhosis, Hx Hepatitis - Hepatitis C on no medications Psychiatric Medical History: Denies: Hx Depression Infectious Medical History: Reports: Hx Hepatitis - Hepatitis C on no medications Past Surgical History: Reports: Hx Section - x3, Hx Cholecystectomy - Laparoscopic, Hx Orthopedic Surgery - L knee, TKR - Immunizations Hx Diphtheria, Pertussis, Tetanus Vaccination: Yes Physical Exam - Vital signs Vitals: Temp Pulse BP Pulse Ox 98.4 F 89 123/71 94 05/16/19 11:33 05/16/19 11:33 05/16/19 11:33 05/16/19 11:33 Course - Vital Signs Vital signs: Temp Pulse Resp BP Pulse Ox 98.4 F 89 123/71 94 05/16/19 11:33 05/16/19 11:33 05/16/19 11:33 05/16/19 11:33
[2019-05-16 12:50] LABS: ABSOLUTE EOSINOPHILS # (AUTO) 0.1 10^3/uL (0.0-0.6); ABSOLUTE LYMPHOCYTES (AUTO) 1.3 10^3/uL (0.5-4.7); ABSOLUTE MONOCYTES (AUTO) 0.4 10^3/uL (0.1-1.4); ABSOLUTE NEUT (AUTO) 3.3 10^3/uL (1.7-8.2); BASOPHILS % (AUTO) 0.5 % (0-2); HEMATOCRIT 34.6 % (36.0-47.0); HEMOGLOBIN 11.3 g/dL (12.0-15.5); LYMPHOCYTES % (AUTO) 25.2 % (13-45); MEAN CORPUSCULAR HEMOGLOBIN 25.2 pg (27.0-33.4); MEAN CORPUSCULAR HGB CONC 32.6 g/dL (32.0-36.0); MEAN CORPUSCULAR VOLUME 77 fl (80-97); MONOCYTES % (AUTO) 8.3 % (3-13); PLATELET COUNT 146 10^3/uL (150-450); RED BLOOD COUNT 4.46 10^6/uL (3.72-5.28); RED CELL DISTRIBUTION WIDTH 21.3 % (11.5-14.0); TOTAL CELLS COUNTED % (AUTO) 100 %; WHITE BLOOD COUNT 5.1 10^3/uL (4.0-10.5)
--- NOTE | 2019-05-16 12:53 | RADIOLOGY REPORT (SQ) ---
EXAM DESCRIPTION: ACUTE ABDOMEN SERIES COMPLETED DATE/TIME: 05/16/2019 12:38 pm REASON FOR STUDY: abd pain; bloating COMPARISON: None. NUMBER OF VIEWS: Three views. TECHNIQUE: Frontal chest, supine abdomen and upright/decubitus abdomen radiographic images acquired. LIMITATIONS: None. FINDINGS: CHEST: Lungs clear of infiltrates. FREE AIR: None. No abnormal gas collections. BOWEL GAS PATTERN: Nonobstructive pattern. No dilated loops or air fluid levels. CALCIFICATIONS: No suspicious calcifications. HARDWARE: None in the abdomen. SOFT TISSUES: No gross mass or suggestion of organomegaly. BONES: No acute fracture. No worrisome bone lesions. OTHER: No other significant finding. IMPRESSION: NO RADIOGRAPHIC EVIDENCE FOR ACUTE ABDOMINAL DISEASE. TECHNICAL DOCUMENTATION: JOB ID: [id number] [employer]- All Rights Reserved Reading location - IP/workstation name: [email or web address]
[2019-05-16 13:17] LABS: ALKALINE PHOSPHATASE 93 U/L (38-126); ANION GAP 10 (5-19); ASPARTATE AMINO TRANSFERASE 71 U/L (14-36); BILIRUBIN,DIRECT 0.4 mg/dL (0.0-0.4); BILIRUBIN,TOTAL 2.4 mg/dL (0.2-1.3); BLOOD UREA NITROGEN 9 mg/dL (7-20); CALCIUM 9.2 mg/dL (8.4-10.2); CARBON DIOXIDE 27 mmol/L (22-30); CHLORIDE 98 mmol/L (98-107); GLUCOSE 84 mg/dL (75-110); POTASSIUM 3.2 mmol/L (3.6-5.0); TOTAL PROTEIN 9.2 g/dL (6.3-8.2)
--- NOTE | 2019-05-16 13:34 | ER Document Report ---
ED GI/ - General Chief Complaint: Abdominal Pain Stated Complaint: POSSIBLE GI BLEED Time Seen by Provider: 05/16/19 12:06 Primary Care Provider: BHARAT PEREZ MD [ACTIVE STAFF] - Follow up as needed Notes: Patient is a 48-year-old female with a history of esophageal varices, liver cirrhosis, hep C who presents to the emergency department with a chief complaint of a coughing up blood. Patient reports she is having epigastric pain without vomiting or diarrhea. Patient reports she was released from providing at hospital last week after being admitted for an upper GI bleed. Patient reports she was diagnosed with esophageal varices and had banding performed. Patient states she did follow-up with [facility] yesterday was told to report here due to her complaints of abdominal pain. Patient reports chills and a subjective fever. Patient reports she has not checked her temperature at home. Patient admits to doing cocaine 3 days ago. Patient also reports her last alcoholic beverage was 2 days ago. Patient reports she does drink 6 pack or more per day. TRAVEL OUTSIDE OF THE [place] IN LAST 30 DAYS: No - Related Data Allergies/Adverse Reactions: NSAIDS (Non-Steroidal Anti-Inflamma [Nsaids] Allergy (Verified 05/16/19 12:02) codeine Adverse Reaction (Verified 05/16/19 12:02) Nausea morphine [Morphine] Adverse Reaction (Verified 05/16/19 12:02) Chest pain Past Medical History - General Information source: Patient - Social History Smoking Status: Current Every Day Smoker Frequency of alcohol use: alcohol use daily Drug Abuse: Cocaine Lives with: Family Family History: Reviewed & Not Pertinent Patient has suicidal ideation: No Patient has homicidal ideation: No - Past Medical History Cardiac Medical History: Reports: Hx Hypertension Pulmonary Medical History: Reports: Hx Bronchitis, Hx COPD EENT Medical History: Reports: None Neurological Medical History: Reports: Hx Migraine Endocrine Medical History: Reports: None Renal/ Medical History: Reports: None. Denies: Hx Peritoneal Dialysis Malignancy Medical History: Reports: None GI Medical History: Reports: Hx Gastroesophageal Reflux Disease - esoph varices, cirrhosis, Hx Hepatitis - Hepatitis C on no medications Musculoskeletal Medical History: Reports None Skin Medical History: Reports None Psychiatric Medical History: Reports: None Denies: Hx Depression Traumatic Medical History: Reports: None Infectious Medical History: Reports: Hx Hepatitis - Hepatitis C on no me dications Past Surgical History: Reports: Hx Section - x3, Hx Cholecystectomy - Laparoscopic, Hx Orthopedic Surgery - L knee, TKR - Immunizations Hx Diphtheria, Pertussis, Tetanus Vaccination: Yes Review of Systems - Review of Systems Constitutional: No symptoms reported EENT: No symptoms reported Cardiovascular: No symptoms reported Respiratory: No symptoms reported Gastrointestinal: See HPI Genitourinary: No symptoms reported Female Genitourinary: No symptoms reported Musculoskeletal: No symptoms reported Skin: No symptoms reported Hematologic/Lymphatic: No symptoms reported Neurological/Psychological: No symptoms reported Physical Exam - Vital signs Vitals: Temp Pulse BP Pulse Ox 98.4 F 89 123/71 94 05/16/19 11:33 05/16/19 11:33 05/16/19 11:33 05/16/19 11:33 Interpretation: Normal - Notes Notes: GENERAL: Well-appearing, well-nourished and in no acute distress. HEAD: Atraumatic, normocephalic. EYES: Pupils equal round and reactive to light, extraocular movements intact, sclera anicteric, conjunctiva are normal. ENT: Nares patent, oropharynx clear without exudates. Moist mucous membranes. NECK: Normal range of motion, supple without lymphadenopathy or JVD. LUNGS: Breath sounds clear to auscultation bilaterally and equal. No wheezes rales or rhonchi. HEART: Regular rate and rhythm without murmurs, rubs or gallops. ABDOMEN: Soft, minimally tender throughout, normoactive bowel sounds. No guarding, no rebound. No masses appreciated. BACK: No cervical, thoracic, lumbar midline tenderness. No saddle anesthesia, normal distal neurovascular exam. GENITOURINARY: Deferred. EXTREMITIES: Normal range of motion, no pitting or edema. No clubbing or cyanosis. NEUROLOGICAL: Cranial nerves II through XII grossly intact. Normal speech, normal gait. PSYCH: Normal mood, normal affect. SKIN: Warm, Dry, normal turgor, no rashes or lesions noted. Course - Re-evaluation Re-evalutation: 05/16/19 13:54 Patient's Hemoccult was negative. Patient has not been coughing up or vomiting blood since in the emergency department. Patient was seen here yesterday and left prior to getting lab results. There was actually an increase in her hemoglobin from 10.3-11.3 today. Patient is not tachycardic, hypotensive or febrile. Patient reports she does have a follow-up with [facility] for repeat EGD at the beginning of June but would like somebody locally. Patient reports having a history of gastritis and has been taking her generic Protonix as prescribed. 05/16/19 14:16 Contacted [facility] for a GI consult. 05/16/19 14:[address] GI MD Dr[address] Samantha Calabrese at [facility] in regards to the patient c/o coughing up blood and recent esophageal banding. He reports that coughing up blood or vomiting of blood is not normal or expected. 05/16/19 15:[address] Perez who states that if and EGD were needed he would be available to do so. Coags added to blood work. Patient has had no coughing or vomiting of blood since being in room 15. I did inform the patient to save the specimen if she is able to provide one. 05/16/19 16:34 I did speak with the hospitalist for possible admission. Patient initially agreed to stay but now reports she needs to get a hold of her uncle as that is her only ride home. I did inform the patient that if she left it would be AGAINST MEDICAL ADVICE. Patient verbalizes understanding and states that she will make a few phone calls and let me know. I did speak with Dr. Vasquez who states to consult Dr. Singh. I will call him when the patient agrees to stay. 05/16/19 16:56 Patient reports that she is choosing not to stay and be admitted. I did discuss strict return precautions with the patient and risk of leaving to include bleeding, worsening of symptoms, and . Patient verbalizes understanding. Patient is completely alert and oriented x3. Patient will sign out AMA. Due to the patient's cough I did discuss the patient's case with who does recommend putting the patient on Augmentin for possible PNA. Patient reports that she was discharged from [facility] with a prescription for ciprofloxacin. Patient reports she was able to get this filled due to [facility]. Patient's urinalysis from yesterday did not show a urinary tract infection. I did make the patient aware of this. Patient's vital signs are stable without tachycardia, hypotension or fever. - Vital Signs Vital signs: Temp Pulse Resp BP Pulse Ox 98.6 F 87 16 121/83 100 05/16/19 15:42 05/16/19 15:42 05/16/19 15:42 05/16/19 15:42 05/16/19 15:42 - Laboratory Result Diagrams: 05/16/19 12:28 05/16/19 12:28 Laboratory results interpreted by me: 05/16/19 05/16/19 05/16/19 12:28 12:28 15:32 Hgb 11.3 L Hct 34.6 L MCV 77 L MCH 25.2 L RDW 21.3 H Plt Count 146 L PT 18.7 H Sodium 134.9 L Potassium 3.2 L Total Bilirubin 2.4 H AST 71 H Total Protein 9.2 H 05/16/19 13:38 Laboratory 05/16/19 05/16/19 12:28 12:28 WBC 5.1 RBC 4.46 Hgb 11.3 L Hct 34.6 L MCV 77 L MCH 25.2 L MCHC 32.6 RDW 21.3 H Plt Count 146 L Lymph % (Auto) 25.2 [place] % (Auto) 8.3 Eos % (Auto) 2.0 Baso % (Auto) 0.5 Absolute Neuts (auto) 3.3 Absolute Lymphs (auto) 1.3 Absolute Monos (auto) 0.4 Absolute Eos (auto) 0.1 Absolute Basos (auto) 0.0 Seg Neutrophils % 64.0 Sodium 134.9 L Potassium 3.2 L Chloride 98 Carbon Dioxide 27 Anion Gap 10 BUN 9 Creatinine 0.62 Est GFR ( Amer) > 60 Est GFR (MDRD) Non-Af > 60 Glucose 84 Calcium 9.2 Total Bilirubin 2.4 H Direct Bilirubin 0.4 Neonat Total Bilirubin Not Reportable Neonat Direct Bilirubin Not Reportable Neonat Indirect Bili Not Reportable AST 71 H ALT 35 Alkaline Phosphatase 93 Total Protein 9.2 H Albumin 4.0 - Diagnostic Test Radiology reviewed: Reports reviewed Radiology results interpreted by me: 05/16/19 13:39 Acute Abdomen Series 05/16/19 12:13 IMPRESSION: NO RADIOGRAPHIC EVIDENCE FOR ACUTE ABDOMINAL DISEASE. Discharge - Discharge Clinical Impression: Alcoholic cirrhosis Qualifiers: Ascites presence: without ascites Qualified Code(s): K70.30 - Alcoholic cirrhosis of liver without ascites Esophageal varices Qualifiers: Esophageal varices type: unspecified type Esophageal varices bleeding: without bleeding Qualified Code(s): I85.00 - Esophageal varices without bleeding Abdominal pain Qualifiers: Abdominal location: epigastric Qualified Code(s): R10.13 - Epigastric pain Condition: Stable Disposition: AGAINST MEDICAL ADVICE Additional Instructions: Today you were seen in the emergency department for possible coughing up blood. We did compare your laboratory findings today from yesterday and your hemoglobin has actually improved from 10.3-11.3. You have not had any active vomiting or coughing up blood since being in the emergency department. Your blood work is reassuring. Your abdominal x-ray was unremarkable. We have given you a GI cocktail which helps numb the esophagus to help with your gastritis. Due to your history of recent banding for esophageal varices we did recommend admission to monitored you overnight. You have chose to leave and not stay in the hospital. Please continue take your Protonix as previously prescribed. Please keep your appointment with [facility] in June. I have referred you to Dr. Perez who is one of our local print line supervisor. You can call him if you want a local print line supervisor. You are choosing to leave AGAINST MEDICAL ADVICE at this time. Please refrain from drinking alcohol, limit cigarette smoking, limit cocaine use. Please return to the emergency department if you have vomiting or coughing up of blood, fever, shortness of breath, severe abdominal pain or any other concerning signs or symptoms. Prescriptions: Amox Tr/Potassium Clavulanate [Augmentin 875-125 Tablet] 1 tab PO BID 10 Days #7 tablet Forms: Smoking Cessation Education Referrals: BHARAT PEREZ MD [ACTIVE STAFF] - Follow up as needed
[2019-05-16] MEDS ORDERED: METOCLOPRAMIDE HCL ORAL SOLN 10 MG/10 ML UDCUP PO ONE (13:56)
[2019-05-16] MEDS ORDERED: LIDOCAINE 2% VISCOUS SOLN 20 ML UDCUP PO ONE (13:56)
[2019-05-16] MEDS ORDERED: MAG HYDROX/AL HYDROX/SIMETH SUSP 30 ML UDCUP PO ONE (13:56)
[2019-05-16 15:42] VITALS: BP 121/83
[2019-05-16 16:00] LABS: INTERNATIONAL RATION (INR) 1.55; PROTHROMBIN TIME 18.7 SEC (11.4-15.4)
[2019-05-16 16:01] LABS: PARTIAL THROMBOPLASTIN TIME 28.7 SEC (23.5-35.8)
== END 2019-05-16 17:21 | disposition left against medical advice (07) ==
LOC: ER 11:25
DX: K70.30 Alcoholic cirrhosis of liver without ascites (principal); I85.00 Esophageal varices without bleeding; R10.13 Epigastric pain; R10.817 Generalized abdominal tenderness; R68.83 Chills (without fever); F14.10 Cocaine abuse, uncomplicated; R04.2 Hemoptysis; I10 Essential (primary) hypertension; J44.9 Chronic obstructive pulmonary disease, unspecified; F17.200 Nicotine dependence, unspecified, uncomplicated; K21.9 Gastro-esophageal reflux disease without esophagitis; K29.70 Gastritis, unspecified, without bleeding; Z79.899 Other long term (current) drug therapy; Z98.890 Other specified postprocedural states; Z88.8 Allergy status to other drugs, medicaments and biological substances; Z53.20 Procedure and treatment not carried out because of patient's decision for unspecified reasons
CPT/HCPCS: 36415; 85025; 85610; 85730; 80053; 74022; J3490; 99284

== ENCOUNTER 2020-05-08 22:27 | Emergency (ER) | payer MEDICAID ==
[2020-05-08] MEDS ORDERED: OXYCODONE HCL IR 5 MG TABLET PO ONE (23:40)
--- NOTE | 2020-05-08 23:42 | ER Document Report ---
ED Medical Screen (RME) - General Stated Complaint: LEFT SIDE OF FACE PAIN AND SWELLING Time Seen by Provider: 05/08/20 23:34 Primary Care Provider: MARIANGEL NEWTON MD [Primary Care Provider] - Follow up as needed Mode of Arrival: Wheelchair Information source: Patient Notes: HPI; 49-year-old female presents to the emergency room complaining of right- sided facial swelling that started yesterday. Patient states 2 days ago she noticed a pimple in her left nare and then developed a bloody nose. States she woke up yesterday after doing with redness and swelling which is gotten progressively worse. Has not taken any medications for her symptoms. She denies any other trauma or injury. No history of MRSA. PE: Alert and oriented x3. Moderate distress noted. There is significant swelling to the upper lip with erythema and swelling to the left side of her face. It is warm and tender to palpation. There is erythema and swelling noted along the left side of her nose. There is no active discharge or draining noted. Lungs: Clear to auscultation without rales, rhonchi, wheezes. Heart: Tachycardic without murmurs, rubs, gallops. I have greeted and performed a rapid initial assessment of this patient. A comprehensive ED assessment and evaluation of the patient, analysis of test results and completion of the medical decision making process will be conducted by additional ED providers. I have specifically instructed the patient or family members with the patient to immediately return to any nursing staff should anything change in the patient's condition or with their chief complaint. TRAVEL OUTSIDE OF THE [place] IN LAST 30 DAYS: No - Related Data Allergies/Adverse Reactions: NSAIDS (Non-Steroidal Anti-Inflamma [Nsaids] Allergy (Verified 05/16/19 12:02) codeine Adverse Reaction (Verified 05/16/19 12:02) Nausea morphine [Morphine] Adverse Reaction (Verified 05/16/19 12:02) Chest pain Past Medical History - Past Medical History Cardiac Medical History: Reports: Hx Hypertension Pulmonary Medical History: Reports: Hx Bronchitis, Hx COPD Neurological Medical History: Reports: Hx Migraine Renal/ Medical History: Denies: Hx Peritoneal Dialysis GI Medical History: Reports: Hx Gastroesophageal Reflux Disease - esoph varices, cirrhosis, Hx Hepatitis - Hepatitis C on no medications Psychiatric Medical History: Denies: Hx Depression Infectious Medical History: Reports: Hx Hepatitis - Hepatitis C on no medications Past Surgical History: Reports: Hx Section - x3, Hx Cholecystectomy - Laparoscopic, Hx Orthopedic Surgery - L knee, TKR - Immunizations Hx Diphtheria, Pertussis, Tetanus Vaccination: Yes Physical Exam - Vital signs Vitals: Temp Pulse Resp BP Pulse Ox 98.6 F 118 H 20 138/79 H 96 05/08/20 22:53 05/08/20 22:53 05/08/20 22:53 05/08/20 22:53 05/08/20 22:53 Course - Vital Signs Vital signs: Temp Pulse Resp BP Pulse Ox 98.6 F 118 H 20 138/79 H 96 05/08/20 22:53 05/08/20 22:53 05/08/20 22:53 05/08/20 22:53 05/08/20 22:53 Doctor's Discharge - Discharge Referrals: MARIANGEL NEWTON MD [Primary Care Provider] - Follow up as needed
--- NOTE | 2020-05-09 00:18 | ER Document Report ---
ED General - General Chief Complaint: Facial Swelling Stated Complaint: LEFT SIDE OF FACE PAIN AND SWELLING Time Seen by Provider: 05/08/20 23:34 Primary Care Provider: MARIANGEL NEWTON MD [NO LOCAL MD] - Follow up as needed Mode of Arrival: Wheelchair TRAVEL OUTSIDE OF THE [place] IN LAST 30 DAYS: No - HPI Notes: 49-year-old female presents with facial swelling. Patient states that a day and a half ago, she thought that she had a pimple inside of her left nostril, picked at the area. Has developed progressive swelling to the left side of her face, mainly the upper lip. Then states that potentially she might have been bit by something as she noticed a similar area on her left eyebrow. Swelling has been progressive, is causing her some pain. She denies any new medications. She has not taken any medications. Med list does not have TOD inhibitor. - Related Data Allergies/Adverse Reactions: codeine Adverse Reaction (Verified 05/16/19 12:02) Nausea morphine [Morphine] Adverse Reaction (Verified 05/16/19 12:02) Chest pain NSAIDS (Non-Steroidal Anti-Inflamma [Nsaids] Adverse Reaction (Verified 05/09/20 00:29) Past Medical History - General Information source: Patient - Social History Smoking Status: Current Every Day Smoker Frequency of alcohol use: restarted recently Drug Abuse: None Family History: Reviewed & Not Pertinent - Past Medical History Cardiac Medical History: Reports: Hx Hypertension Pulmonary Medical History: Reports: Hx Bronchitis, Hx COPD Neurological Medical History: Reports: Hx Migraine Renal/ Medical History: Denies: Hx Peritoneal Dialysis GI Medical History: Reports: Hx Gastroesophageal Reflux Disease - esoph varices, cirrhosis, Hx Hepatitis - Hepatitis C on no medications Psychiatric Medical History: Denies: Hx Depression Infectious Medical History: Reports: Hx Hepatitis - Hepatitis C on no medications Past Surgical History: Reports: Hx Section - x3, Hx Cholecystectomy - Laparoscopic, Hx Orthopedic Surgery - L knee, TKR - Immunizations Hx Diphtheria, Pertussis, Tetanus Vaccination: Yes Review of Systems - Review of Systems Constitutional: denies: Fever EENT: Mouth swelling. denies: Difficulty swallowing Cardiovascular: denies: Chest pain Respiratory: denies: Short of breath Gastrointestinal: denies: Diarrhea, Vomiting Genitourinary: No symptoms reported Musculoskeletal: No symptoms reported Skin: Change in color Neurological/Psychological: No symptoms reported Physical Exam - Vital signs Vitals: Temp Pulse Resp BP Pulse Ox 98.6 F 118 H 20 138/79 H 96 05/08/20 22:53 05/08/20 22:53 05/08/20 22:53 05/08/20 22:53 05/08/20 22:53 - General General appearance: Alert - HEENT Head: Normocephalic, Atraumatic Extraocular movements intact: Yes Pupils: PERRL Nasal: No: Swelling Mouth/Lips: Other - There is marked swelling of the upper lip, somewhat asymmetric with the left side being larger than the right side. There is no edema of the tongue or palate. Pharynx: No: Erythema, Uvular edema Neck: Supple, Other - Phonation intact, no stridor Notes: There is erythema and swelling to the left cheek, this area is soft, there is no induration or area of fluctuance, there appears to be small mat near left upper lip possibly insect bite. There is a smaller localized area of swelling with mild erythema to the left distal eyebrow, again a small mat which could be insect bite. - Respiratory Respiratory status: No respiratory distress Breath sounds: Normal. No: Wheezing - Cardiovascular Rhythm: Regular, Tachycardia Heart sounds: Normal auscultation - Abdominal Tenderness: Nontender - Extremities General upper extremity: Normal inspection, Normal color General lower extremity: Normal inspection, Normal color - Neurological Neuro grossly intact: Yes Cognition: Normal Orientation: AAOx4 - Psychological Associated symptoms: Anxious - Skin Skin Temperature: Warm Course - Re-evaluation Re-evalutation: 49-year-old female with left facial swelling x1.5-day. There is marked swelling to the upper lip, there is some associated left-sided facial swelling as well. Phonation is intact, no stridor, no tongue swelling. There is no TOD inhibitor in her medication list. Given that there are 2 insect appearing bites, I am c oncerned that this actually represents an allergic reaction. Does not have overt appearance of cellulitis at this time. Would have a less concern for deep space infection given the rapidly progressive nature of her symptoms. We will start symptomatic control with Benadryl, Pepcid and Solu-Medrol. Consider imaging if no improvement after medications. She is afebrile, not hypotensive, mild tachycardic. 05/09/20 01:06 In to reassess, received meds about 20 minutes ago. There does seem to be a mild improvement to the swelling of the upper lip. Patient sleeping 05/09/20 01:56 No leukocytosis or left shift suggestive of infection. Mild hyponatremia, history of this, has received 1L LR. Electrolytes otherwise okay. Creatinine within normal limits. Mild elevation of LFTs, history of this as well. 05/09/20 02:28 Improvement in the lip swelling since last check 05/09/20 03:30 Patient awake, she is now able to close her lips. Will reorder Benadryl as we have had some success so far with treatment 05/09/20 05:02 Area of swelling to left eyebrow has pretty much resolved 05/09/20 05:52 Lip swelling continues to improve, left facial swelling has almost resolved. Patient sleeping, VSS 05/09/20 07:02 Woke patient up to discuss positive results, lip swelling has markedly improved, greater than 50% reduction. There is still some swelling persist. I discussed with her that she will need to be on a course of prednisone which has been prescribed. She is also to continue Benadryl. Patient states that she still feels she is too sleepy to go home at this time, this is understandable as she has had 100 mg of IV Benadryl total. Patient will be discharged when she is more awake. - Vital Signs Vital signs: Temp Pulse Resp BP Pulse Ox 99 F 118 H 17 140/81 H 97 05/09/20 05:00 05/08/20 22:53 05/09/20 06:00 05/09/20 06:00 05/09/20 06:00 - Laboratory Result Diagrams: 05/09/20 00:24 05/09/20 00:24 Laboratory results interpreted by me: 05/09/20 05/09/20 00:24 00:24 Hct 34.9 L RDW 17.9 H Plt Count 72 L Lymph % (Auto) 12.6 L [place] % (Auto) 13.1 H Sodium 131.4 L AST 108 H ALT 69 H Discharge - Discharge Clinical Impression: Left facial swelling Allergic reaction Qualifiers: Encounter type: initial encounter Qualified Code(s): T78.40XA - Allergy, unspec ified, initial encounter Disposition: HOME, SELF-CARE Additional Instructions: You were seen today for facial swelling. As discussed, you had signs that were concerning for an allergic reaction. You have been prescribed a course of steroids, please take this for 5 days. You may continue to use Benadryl as well, can use up to 4 times per day. Please have close follow-up with your primary care doctor. Return to the emergency department for any concerning worsening symptoms. Prescriptions: Prednisone [Deltasone 20 mg Tablet] 2 tab PO DAILY 5 Days #10 tablet Referrals: MARIANGEL NEWTON MD [NO LOCAL MD] - Follow up as needed
[2020-05-09] MEDS ORDERED: DIPHENHYDRAMINE HCL 50 MG/ML VIAL IV ONE ×2 (00:25→03:31)
[2020-05-09] MEDS ORDERED: FAMOTIDINE INJ/PF 20 MG/2 ML SDV IV ONE (00:25)
[2020-05-09] MEDS ORDERED: RINGERS SOLUTION,LACTATED 1,000 ML IV ONE (00:26)
[2020-05-09] MEDS ORDERED: METHYLPREDNISOLONE INJ 125 MG/2 ML SDV IV ONE (00:26)
[2020-05-09 00:51] LABS: ABSOLUTE BASOPHILS # (AUTO) 0.1 10^3/uL (0.0-0.2); ABSOLUTE NEUT (AUTO) 5.6 10^3/uL (1.7-8.2); EOSINOPHILS % (AUTO) 0.5 % (0-6); HEMATOCRIT 34.9 % (36.0-47.0); HEMOGLOBIN 12.2 g/dL (12.0-15.5); LYMPHOCYTES % (AUTO) 12.6 % (13-45); MEAN CORPUSCULAR HGB CONC 34.9 g/dL (32.0-36.0); MEAN CORPUSCULAR VOLUME 80 fl (80-97); MONOCYTES % (AUTO) 13.1 % (3-13); RED BLOOD COUNT 4.34 10^6/uL (3.72-5.28); RED CELL DISTRIBUTION WIDTH 17.9 % (11.5-14.0); SEGMENTED NEUTROPHILS % (AUTO) 72.8 % (42-78); TOTAL CELLS COUNTED % (AUTO) 100 %; WHITE BLOOD COUNT 7.7 10^3/uL (4.0-10.5)
[2020-05-09 00:57] LABS: ALBUMIN 3.5 g/dL (3.5-5.0); ALKALINE PHOSPHATASE 123 U/L (38-126); ANION GAP 8 (5-19); ASPARTATE AMINO TRANSFERASE 108 U/L (14-36); BILIRUBIN,DIRECT 0.4 mg/dL (0.0-0.4); BILIRUBIN,TOTAL 1.3 mg/dL (0.2-1.3); BLOOD UREA NITROGEN 7 mg/dL (7-20); CALCIUM 8.8 mg/dL (8.4-10.2); CARBON DIOXIDE 22 mmol/L (22-30); CHLORIDE 101 mmol/L (98-107); GLUCOSE 95 mg/dL (75-110); POTASSIUM 3.8 mmol/L (3.6-5.0); TOTAL PROTEIN 7.4 g/dL (6.3-8.2)
[2020-05-09 01:13] LABS: PLATELET COUNT 72 10^3/uL (150-450)
[2020-05-09 09:10] VITALS: BP 139/90
== END 2020-05-09 08:40 | disposition home or self-care (01) ==
LOC: ER 22:27
DX: R22.0 Localized swelling, mass and lump, head (principal); T78.40XA Allergy, unspecified, initial encounter; X58.XXXA Exposure to other specified factors, initial encounter; Z88.6 Allergy status to analgesic agent
CPT/HCPCS: 99283; 96361; 96374; 96375; 36415; 85025; 80053; J1200; J2930; J7120; S0028; J3490